=== PATIENT | male | born 1935 | race Caucasian/White ===

== ENCOUNTER 2021-09-04 02:45 | Emergency (ER) | payer MEDICARE, BC ==
[2021-09-04] MEDS ORDERED: Sodium Chloride 0.9% 10 ML Syringe FLUSH PRN (02:57)
[2021-09-04] MEDS ORDERED: Morphine 4 MG/ML Syringe IVPUSH PRN (02:57)
[2021-09-04] MEDS ORDERED: Aspirin 81 MG Tab.Chew PO ONE (02:57)
[2021-09-04] MEDS: Nitroglycerin 0.4 MG Tab.SL SL PRN ×3 (03:06→03:23)
[2021-09-04 03:22] LABS: ESTIMATED GFR 73 mL/min (>60); TROPONIN I HIGH SENSITIVITY 9.5 pg/mL (<=60.3)
== END 2021-09-04 07:24 | disposition home or self-care (01) ==
LOC: JP.ED 02:45
DX: R07.89 Other chest pain (principal); I25.10 Atherosclerotic heart disease of native coronary artery without angina pectoris; F17.210 Nicotine dependence, cigarettes, uncomplicated; Z91.013 Allergy to seafood; Z79.899 Other long term (current) drug therapy; Z79.82 Long term (current) use of aspirin
CPT/HCPCS: 36415; 71045; 80053; 84484; 85025; 93005; 96374; 99285; A9270; J2270; J3490; 93010; 99282